=== PATIENT | male | born 1955 | race Caucasian/White ===

== ENCOUNTER 2017-04-06 13:01 | Inpatient (IN) | payer OTHER ==
[2017-04-06 14:01] VITALS: BMI 17.7
--- NOTE | 2017-04-06 14:54 | HP ---
CIWA Score - CIWA Score Nausea/Vomitin-No Nausea/No Vomiting Muscle Tremors: 4-Moderate,w/Arms Extend Anxiety: 3 Agitation: 4-Moderately Restless Paroxysmal Sweats: 3 Orientation: 0-Oriented Tacttile Disturbances: 0-None Auditory Disturbances: 0-None Visual Disturbances: 0-None Headache: 0-None Present CIWA-Ar Total Score: 14 Admission ROS BHS - HPI Chief Complaint: I am here for detox. Allergies/Adverse Reactions: Allergies Allergy/AdvReac Type Severity Reaction Status Date / Time No Known Allergies Allergy Verified 04/06/17 13:58 History of Present Illness: pt is a 61yr old male with a history of alcohol dependence seeking detox for treatment. Exam Limitations: No Limitations - Ebola screening Have you traveled outside of the country in the last 21 days: No Have you had contact with anyone from an Ebola affected area: No Have you been sick,other than usual withdrawal symptoms: No Do you have a fever: No - Review of Systems Constitutional: Chills, Loss of Appetite, Night Sweats, Unintentional Wgt. Loss EENT: reports: Tearing, Nose Congestion Respiratory: reports: Cough Cardiac: reports: No Symptoms Reported GI: reports: Poor Appetite, Poor Fluid Intake : reports: No Symptoms Reported Musculoskeletal: reports: No Symptoms Reported, Back Pain Integumentary: reports: Flushing, Sweating Neuro: reports: Headache, Seizure (alcohol related seizure many years ago.), Tingling, Tremors Endocrine: reports: Excessive Sweating, Flushing, Intolerance to Cold, Intolerance to Heat Hematology: reports: Anemia Psychiatric: reports: Judgement Intact, Mood/Affect Appropiate, Orientated x3, Agitated, Anxious Other Systems: Reviewed and Negative Patient History - Patient Medical History Hx Anemia: Yes Hx Asthma: Yes Hx Chronic Obstructive Pulmonary Disease (COPD): Yes Hx Cancer: No Hx Cardiac Disorders: No Hx Congestive Heart Failure: No Hx Hypertension: No Hx Hypercholesterolemia: No Hx Pacemaker: No HX Cerebrovascular Accident: No Hx Seizures: Yes (alcohol related -last episode was in 2004) Hx Dementia: No Hx Diabetes: No Hx Gastrointestinal Disorders: Yes (acid reflux) Hx Liver Disease: No Hx Genitourinary Disorders: No Hx Sexually Transmitted Disorders: No Hx Renal Disease (ESRD): No Hx Thyroid Disease: No Hx Human Immunodeficiency Virus (HIV): No (negative) Hx Hepatitis C: No (nicotine ) Hx Depression: No Hx Suicide Attempt: No (denies) Hx Bipolar Disorder: No Hx Schizophrenia: No - Patient Surgical History Past Surgical History: Yes Hx Neurologic Surgery: No Hx Cataract Extraction: No Hx Cardiac Surgery: No Hx Lung Surgery: Yes (open thoracotomy in 2004) Hx Abdominal Surgery: Yes (right inguinal hernia repair at age of 7 years) Hx Appendectomy: Yes (at age of 9 years,) Hx Cholecystectomy: No Hx Genitourinary Surgery: No Hx Section: No Hx Orthopedic Surgery: No Anesthesia Reaction: No - PPD History Previous Implant?: Yes Documented Results: Positive w/o proof - Reproductive History Patient is a Female of Child Bearing Age (11 -55 yrs old): No - Smoking Cessation Smoking history: Current every day smoker Have you smoked in the past 12 months: Yes Aproximately how many cigarettes per day: 20 Hx Chewing Tobacco Use: No Initiated information on smoking cessation: Yes 'Breaking Loose' booklet given: 04/06/17 - Substance & Tx. History Hx Alcohol Use: Yes Hx Substance Use: Yes Substance Use Type: Alcohol, Marijuana Hx Substance Use Treatment: Yes (last detox at [facility] 12/2012) - Substances Abused Alcohol-beer Route: Oral Frequency: Daily Amount used: 2-3 6 pks. beer Age of first use: 11 Date of Last Use: 04/05/17 Marijuana Route: Smoking Frequency: 3-6 times per week Amount used: $5 Age of first use: 15 Date of Last Use: 04/05/17 Family Disease History - Family Disease History Family History: Denies Admission Physical Exam S - Vital Signs Vital Signs: Vital Signs - 24 hr 04/06/17 13:56 Temperature 96 F L Pulse Rate 113 H Respiratory 19 Rate Blood Pressure 152/112 - Physical General Appearance: Yes: Appropriately Dressed, Moderate Distress, Thin, Tremorous, Irritable, Sweating, Anxious HEENTM: Yes: Normal Voice, Nasal Congestion, Rhinorrhea Respiratory: Yes: Lungs Clear, Normal Breath Sounds, No Respiratory Distress Neck: Yes: No masses,lesions,Nodules Breast: Yes: Within Normal Limits Cardiology: Yes: Regular Rhythm, Regular Rate, S1, S2 Abdominal: Yes: Normal Bowel Sounds, Non Tender, Soft Genitourinary: Yes: Within Normal Limits Back: Yes: Normal Inspection Musculoskeletal: Yes: Back pain Extremities: Yes: Normal Capillary Refill, Normal Inspection, Non-Tender, Tremors Neurological: Yes: Fully Oriented, Alert, Normal Response Integumentary: Yes: Normal Color, Diaphoresis Lymphatic: Yes: Within Normal Limits - Diagnostic (1) COPD - Chronic obstructive lung disease Current Visit: Yes Status: Chronic (2) Alcohol dependence with uncomplicated withdrawal Current Visit: Yes Status: Chronic (3) herniated dics of thoracic spine Current Visit: No Status: Chronic (4) Nicotine dependence Current Visit: Yes Status: Chronic Qualifiers: Nicotine product type: cigarettes Substance use status: uncomplicated Qualified Code(s): F17.210 - Nicotine dependence, cigarettes, uncomplicated (5) GERD (gastroesophageal reflux disease) Current Visit: Yes Status: Chronic Qualifiers: Esophagitis presence: without esophagitis Qualified Code(s): K21.9 - Gastro-esophageal reflux disease without esophagitis Cleared for Admission BHS - Detox or Rehab [facility] Level of Care: Medically Managed Detox Regimen/Protocol: Librium S Breath Alcohol Content Breath Alcohol Content: 0 Urine Drug Screen - Results Urine Drug Screen Results: THC-Marijuana, MET-Methamphetamine, BZO- Benzodiazepines
[2017-04-06] MEDS ORDERED: diphenhydrAMINE HCL 50 MG CAPSULE PO PRN (14:58)
[2017-04-06] MEDS ORDERED: IBUPROFEN 400 MG TABLET (FP) PO PRN (14:58)
[2017-04-06] MEDS ORDERED: P-EPHED 60MG/TRIPROLIDI 2.5MG TABLET PO PRN (14:58)
[2017-04-06] MEDS ORDERED: MAGNESIUM HYDROX 2400MG/30ML ORAL SUSPENSION 30 ML CUP PO PRN (14:58)
[2017-04-06] MEDS ORDERED: NICOTINE POLACRILEX 4 MG GUM BC PRN (14:58)
[2017-04-06] MEDS ORDERED: chlordiazePOXIDE HCL 25 MG CAPSULE PO PRN (14:58)
[2017-04-06] MEDS ORDERED: MAGNESIUM CITRATE 300 ML BOTTLE PO PRN (14:58)
[2017-04-06] MEDS ORDERED: ACETAMINOPHEN 325 MG TABLET (FP) PO PRN (14:58)
[2017-04-06] MEDS ORDERED: chlordiazePOXIDE HCL 25 MG CAPSULE PO ONE (14:58)
[2017-04-06] MEDS ORDERED: MENTHOL/PHENOL 1 EACH UD MM PRN (14:58)
[2017-04-06] MEDS ORDERED: LOPERAMIDE HCL 2 MG CAPSULE PO PRN (14:58)
[2017-04-06] MEDS ORDERED: guaiFENesin/D-METHORPHAN HB 10 ML UNIT-DOSE CUPS PO PRN (14:58)
[2017-04-06] MEDS: chlordiazePOXIDE HCL 25 MG CAPSULE PO SCH ×2 (17:52→23:10)
[2017-04-06] MEDS: ALBUTEROL SO4 6.7 GM HFA INHALER IH PRN (18:23)
[2017-04-06] MEDS: ALBUTEROL SO4 2.5/IPRATROPIUM 0.5 INH SOL 3 ML VIAL.NEB. NEB PRN (18:24)
--- NOTE | 2017-04-06 21:35 | EKG ---
Test Reason : Blood Pressure : / mmHG Vent. Rate : 106 BPM Atrial Rate : 106 BPM P-R Int : 112 ms QRS Dur : 090 ms QT Int : 338 ms P-R-T Axes : 078 063 078 degrees QTc Int : 448 ms SINUS TACHYCARDIA RIGHT ATRIAL ENLARGEMENT MINIMAL VOLTAGE CRITERIA FOR LVH, MAY BE NORMAL VARIANT HIHG LATERAL WALL DC NEEDS TO BE RULED OUT ABNORMAL ECG NO PREVIOUS ECGS AVAILABLE REPEAT EKG IF CLINICALLY INDICATED Confirmed by LEWIS STOVER MD ([id number]) on 04/06/2017 9:34:54 PM Referred By: Confirmed By:LEWIS STOVER MD
[2017-04-06 22:15] LABS: URINE APPEARANCE SLCLOUDY; URINE BILIRUBIN NEGATIVE (NEGATIVE); URINE BLOOD NEGATIVE (NEGATIVE); URINE COLOR YELLOW; URINE GLUCOSE (UA) NEGATIVE (NEGATIVE); URINE KETONE 2+ (NEGATIVE); URINE LEUK ESTERASE NEGATIVE (NEGATIVE); URINE NITRITE NEGATIVE (NEGATIVE); URINE UROBILINOGEN NEGATIVE mg/dL (0.2-1.0)
[2017-04-06 22:24] LABS: URINE PROTEIN 2+ (NEGATIVE)
[2017-04-06] MEDS: BUDESONIDE/FORMETEROL FUMARATE 160/4.5 mcg INHALER IH SCH (22:30)
[2017-04-06 22:33] LABS: URINE MUCUS RARE; URINE RBC <1 /hpf (0-3); URINE WBC 1 /hpf (3-5)
[2017-04-06] MEDS: THIAMINE HCL 100 MG TABLET (FP) PO SCH (23:10)
[2017-04-07] MEDS: chlordiazePOXIDE HCL 25 MG CAPSULE PO SCH ×4 (05:39→22:49)
[2017-04-07] MEDS: ALBUTEROL SO4 2.5/IPRATROPIUM 0.5 INH SOL 3 ML VIAL.NEB. NEB PRN (09:08)
[2017-04-07 10:01] LABS: MCH 30.7 pg (25.7-33.7); MCHC 32.2 g/dl (32.0-35.9); MEAN CELL VOLUME 95.4 fl (80-96); MEAN PLT VOLUME 9.2 fl (7.5-11.1); PLATELET COUNT 237 K/MM3 (134-434); RDW 18.6 % (11.9-15.9)
[2017-04-07 10:32] LABS: ALBUMIN 4.2 g/dl (3.4-5.0); ANION GAP 12 (8-16); CALCIUM 9.9 mg/dL (8.5-10.1); CO2 27 mmol/L (21-32); GLUCOSE,RANDOM 101 mg/dL (74-106)
[2017-04-07 10:37] LABS: ALK PHOS 86 U/L (45-117); BILIRUBIN,TOTAL 0.6 mg/dL (0.2-1.0); CREATININE 0.6 mg/dL (0.7-1.3); SGOT/AST 79 U/L (15-37); SGPT/ALT 62 U/L (12-78); TOT PROT 7.9 g/dl (6.4-8.2)
[2017-04-07] MEDS: predniSONE 20 MG TABLET (UD) PO SCH (10:56)
[2017-04-07] MEDS: PRENATAL VITAMINS W/ FOLIC ACID TABLET (FP) PO SCH (10:56)
[2017-04-07] MEDS: NICOTINE 21 MG/24 HOURS TOPICAL PATCH TD SCH (10:56)
[2017-04-07] MEDS: BUDESONIDE/FORMETEROL FUMARATE 160/4.5 mcg INHALER IH SCH ×2 (10:57→22:49)
--- NOTE | 2017-04-07 12:25 | PN ---
[facility] CIWA - CIWA Score Nausea/Vomitin-No Nausea/No Vomiting Muscle Tremors: 4-Moderate,w/Arms Extend Anxiety: 4-Mod. Anxious/Guarded Agitation: 4-Moderately Restless Paroxysmal Sweats: 1-Minimal Palms Moist Orientation: 0-Oriented Tacttile Disturbances: 3-Moderate Itch/Numb/Burn Auditory Disturbances: 0-None Visual Disturbances: 0-None Headache: 0-None Present CIWA-Ar Total Score: 16 BHS Progress Note (SOAP) Subjective: ANXIETY,TREMULOUS,IRRITABILITY, FATIGUE. Objective: 04/07/17 12:23 Vital Signs 04/07/17 04/07/17 06:58 10:16 Temperature 97.4 F L 96.6 F L Pulse Rate 119 H 125 H Respiratory 20 18 Rate Blood Pressure 148/91 141/96 Assessment: 04/07/17 12:24 WITHDRAWAL SX Plan: CONTINUE DETOX ADDITIONAL LIBRIUM 50 MG PO AT 2:00 PM TODAY
[2017-04-07] MEDS ORDERED: BACITRACIN 15 GM TUBE TOPICAL OINTMENT TP SCH (12:30)
--- NOTE | 2017-04-07 12:36 | CONSULT ---
[facility] Psychiatric Consult - Data Date of interview: 04/07/17 Admission source: [facility] Identifying data: Readmission to [facility] for this 61 y/o male seeking detox treatment on for alcohol and marihuana dependence.Patient is single without children,domiciled,unemployed and supported on [facility] benefits. Substance Abuse History: Confirmed by patient. Smoking Cessation. Smoking history: Current every day smoker. Have you smoked in the past 12 months: Yes. Aproximately how many cigarettes per day: 20. Hx Chewing Tobacco Use: No. Initiated information on smoking cessation: Yes. 'Breaking Loose' booklet given : 04/06/17. - Substance & Tx. History. Hx Alcohol Use: Yes. Hx Substance Use : Yes. Substance Use Type: Alcohol, Marijuana. Hx Substance Use Treatment: Yes (last detox at [facility] 12/2012). - Substances Abused. Alcohol-beer. Route: Oral. Frequency: Daily. Amount used: 2-3 6 pks. beer. Age of first use : 11. Date of Last Use: 04/05/17. Marijuana. Route: Smoking. Frequency: 3 -6 times per week. Amount used: $5. Age of first use: 15. Date of Last Use: 04/05/17 Medical History: Remarkable for bronchial asthma,COPD,aspergillus,withdrawal- related seizures in the past,lower back pain,herniated disk (thoracic spine), GERD,onychomycosis,and right inguinal herniorraphy.Noted additional history of appendectomy,thoracotomy (2003) and orthosurgery for multiple fractures (wrists, ribs,right leg). Psychiatric History: Patient denies. Physical/Sexual Abuse/Trauma History: No history of sexual abuse. Additional Comment: Urine Drug Screen Results: THC-Marijuana, MET- Methamphetamine, BZO-Benzodiazepines.Noted. Mental Status Exam - Mental Status Exam Alert and Oriented to: Time, Place, Person Cognitive Function: Good Patient Appearance: Well Groomed Mood: Withdrawn Affect: Appropriate, Normal Range Patient Behavior: Fatigued, Appropriate, Cooperative Speech Pattern: Clear Voice Loudness: Normal Thought Process: Intact, Goal Oriented Thought Disorder: Not Present Hallucinations: Denies Suicidal Ideation: Denies Homicidal Ideation: Denies Insight/Judgement: Poor Sleep: Poorly, Difficulty falling asleep Appetite: Poor, Weight loss Muscle strength/Tone: Normal Gait/Station: Normal Psychiatric Findings - Problem List ([place] 1, 2,3) (1) Alcohol dependence with uncomplicated withdrawal Current Visit: Yes Status: Acute (2) Nicotine dependence Current Visit: Yes Status: Acute Qualifiers: Nicotine product type: cigarettes Substance use status: uncomplicated Qualified Code(s): F17.210 - Nicotine dependence, cigarettes, uncomplicated (3) Marihuana dependence Current Visit: Yes Status: Acute (4) COPD - Chronic obstructive lung disease Current Visit: Yes Status: Chronic (5) GERD (gastroesophageal reflux disease) Current Visit: Yes Status: Chronic Qualifiers: Esophagitis presence: without esophagitis Qualified Code(s): K21.9 - Gastro-esophageal reflux disease without esophagitis (6) Onychomycosis Current Visit: Yes Status: Active (7) multiple fx both wrists,right femur,leg,post trauma Current Visit: No Status: Resolved (8) s/p appendectomy Current Visit: Yes Status: Resolved (9) Insomnia Current Visit: Yes Status: Acute - Initial Treatment Plan Initial Treatment Plan: Psychoeducation.Detoxification.Ambien 5 mg po hs.Patient made aware of risk for parasomnias.patient agrees with careplan.Observation.
[2017-04-07] MEDS: BACITRACIN 0.9 GM PACKET TP SCH ×2 (13:38→22:52)
[2017-04-07] MEDS ORDERED: chlordiazePOXIDE HCL 25 MG CAPSULE PO ONE (14:00)
[2017-04-07] MEDS: MAG HYDROX/AL HYDROX/SIMETH 30 ML UNIT-DOSE CUP PO PRN (17:51)
[2017-04-07] MEDS: THIAMINE HCL 100 MG TABLET (FP) PO SCH (22:49)
[2017-04-08] MEDS: chlordiazePOXIDE HCL 25 MG CAPSULE PO SCH ×2 (06:08→10:27)
[2017-04-08] MEDS: predniSONE 20 MG TABLET (UD) PO SCH (10:27)
[2017-04-08] MEDS: BACITRACIN 0.9 GM PACKET TP SCH ×2 (10:27→22:36)
[2017-04-08] MEDS: PRENATAL VITAMINS W/ FOLIC ACID TABLET (FP) PO SCH (10:27)
[2017-04-08] MEDS: NICOTINE 21 MG/24 HOURS TOPICAL PATCH TD SCH (10:28)
[2017-04-08] MEDS: BUDESONIDE/FORMETEROL FUMARATE 160/4.5 mcg INHALER IH SCH ×2 (10:28→22:35)
--- NOTE | 2017-04-08 11:29 | PN ---
[facility] CIWA - CIWA Score Nausea/Vomitin-No Nausea/No Vomiting Muscle Tremors: 4-Moderate,w/Arms Extend Anxiety: 4-Mod. Anxious/Guarded Agitation: 4-Moderately Restless Paroxysmal Sweats: 1-Minimal Palms Moist Orientation: 0-Oriented Tacttile Disturbances: 3-Moderate Itch/Numb/Burn Auditory Disturbances: 0-None Visual Disturbances: 0-None Headache: 0-None Present CIWA-Ar Total Score: 16 BHS Progress Note (SOAP) Subjective: ANXIETY,SWEATS,TREMORS,IRRITABILITY Objective: 04/08/17 11:27 WITHDRAWAL SX Assessment: 04/08/17 11:28 WITHDRAWAL SX Plan: CONTINUE DETOX
[2017-04-08] MEDS ORDERED: chlordiazePOXIDE HCL 25 MG CAPSULE PO ONE (14:00)
[2017-04-08] MEDS: chlordiazePOXIDE 5 MG CAPSULE PO SCH ×2 (17:05→22:36)
[2017-04-08] MEDS: ALBUTEROL SO4 6.7 GM HFA INHALER IH PRN (17:07)
[2017-04-08] MEDS: hydrOXYzine PAMOATE 50 MG CAPSULE (FP) PO PRN (17:40)
[2017-04-08] MEDS: ALBUTEROL SO4 2.5/IPRATROPIUM 0.5 INH SOL 3 ML VIAL.NEB. NEB PRN (17:41)
[2017-04-08] MEDS: ZOLPIDEM TARTRATE 5 MG TABLET PO PRN (22:36)
[2017-04-08] MEDS: THIAMINE HCL 100 MG TABLET (FP) PO SCH (22:36)
[2017-04-09] MEDS: hydrOXYzine PAMOATE 50 MG CAPSULE (FP) PO PRN ×4 (03:35→22:41)
[2017-04-09] MEDS: chlordiazePOXIDE 5 MG CAPSULE PO SCH ×2 (05:18→10:17)
[2017-04-09] MEDS: ALBUTEROL SO4 6.7 GM HFA INHALER IH PRN (05:20)
[2017-04-09] MEDS: predniSONE 20 MG TABLET (UD) PO SCH (10:17)
[2017-04-09] MEDS: PRENATAL VITAMINS W/ FOLIC ACID TABLET (FP) PO SCH (10:17)
[2017-04-09] MEDS: NICOTINE 21 MG/24 HOURS TOPICAL PATCH TD SCH (10:17)
[2017-04-09] MEDS: BUDESONIDE/FORMETEROL FUMARATE 160/4.5 mcg INHALER IH SCH ×2 (10:17→22:40)
[2017-04-09] MEDS: BACITRACIN 0.9 GM PACKET TP SCH ×2 (10:17→22:39)
--- NOTE | 2017-04-09 11:49 | PN ---
BHS Progress Note (SOAP) Subjective: ANXIETY,TREMORS,SWEATS, INTERMITTENT SLEEP. Objective: 04/09/17 11:48 Vital Signs Temperature 98.1 F 04/09/17 10:02 Pulse Rate 102 H 04/09/17 10:02 Respiratory Rate 20 04/09/17 10:02 Blood Pressure 123/79 04/09/17 10:02 O2 Sat by Pulse Oximetry (%) Laboratory Last Values WBC 9.0 K/mm3 (4.0-10.0) 04/07/17 06:00 RBC 4.50 M/mm3 (4.00-5.60) 04/07/17 06:00 Hgb 13.8 GM/dL (11.7-16.9) D 04/07/17 06:00 Hct 42.9 % (35.4-49) 04/07/17 06:00 MCV 95.4 fl (80-96) 04/07/17 06:00 MCH 30.7 pg (25.7-33.7) 04/07/17 06:00 MCHC 32.2 g/dl (32.0-35.9) 04/07/17 06:00 RDW 18.6 % (11.9-15.9) H D 04/07/17 06:00 Plt Count 237 K/MM3 (134-434) 04/07/17 06:00 MPV 9.2 fl (7.5-11.1) 04/07/17 06:00 Sodium 136 mmol/L (136-145) 04/07/17 06:00 Potassium 4.8 mmol/L (3.5-5.1) 04/07/17 06:00 Chloride 97 mmol/L (98-107) L 04/07/17 06:00 Carbon Dioxide 27 mmol/L (21-32) 04/07/17 06:00 Anion Gap 12 (8-16) 04/07/17 06:00 BUN 11 mg/dL (7-18) D 04/07/17 06:00 Creatinine 0.6 mg/dL (0.7-1.3) L 04/07/17 06:00 Creat Clearance w eGFR > 60 (>60) 04/07/17 06:00 Random Glucose 101 mg/dL (74-106) 04/07/17 06:00 Calcium 9.9 mg/dL (8.5-10.1) 04/07/17 06:00 Total Bilirubin 0.6 mg/dL (0.2-1.0) 04/07/17 06:00 AST 79 U/L (15-37) H D 04/07/17 06:00 ALT 62 U/L (12-78) 04/07/17 06:00 Alkaline Phosphatase 86 U/L (45-117) 04/07/17 06:00 Total Protein 7.9 g/dl (6.4-8.2) 04/07/17 06:00 Albumin 4.2 g/dl (3.4-5.0) D 04/07/17 06:00 Urine Color Yellow 04/06/17 21:30 Urine Appearance Slcloudy 04/06/17 21:30 Urine pH 8.0 (5.0-8.0) 04/06/17 21:30 Ur Specific [place] 1.020 (1.005-1.025) 04/06/17 21:30 Urine Protein 2+ (NEGATIVE) H 04/06/17 21:30 Urine Glucose (UA) Negative (NEGATIVE) 04/06/17 21:30 Urine Ketones 2+ (NEGATIVE) H 04/06/17 21:30 Urine Blood Negative (NEGATIVE) 04/06/17 21:30 Urine Nitrite Negative (NEGATIVE) 04/06/17 21:30 Urine Bilirubin Negative (NEGATIVE) 04/06/17 21:30 Urine Urobilinogen Negative mg/dL (0.2-1.0) 04/06/17 21:30 Ur Leukocyte Esterase Negative (NEGATIVE) 04/06/17 21:30 Urine RBC <1 /hpf (0-3) 04/06/17 21:30 Urine WBC 1 /hpf (3-5) 04/06/17 21:30 Urine Mucus Rare 04/06/17 21:30 RPR Titer Nonreactive (NONREACTIVE) 04/07/17 06:00 Assessment: 04/09/17 11:48 WITHDRAWAL SX Plan: CONTINUE DETOX INCREASE PO FLUIDS.
[2017-04-09] MEDS: chlordiazePOXIDE HCL 10 MG CAPSULE PO SCH ×2 (17:18→22:39)
[2017-04-09] MEDS: ZOLPIDEM TARTRATE 5 MG TABLET PO PRN (22:39)
[2017-04-09] MEDS: THIAMINE HCL 100 MG TABLET (FP) PO SCH (22:39)
[2017-04-09] MEDS: MAG HYDROX/AL HYDROX/SIMETH 30 ML UNIT-DOSE CUP PO PRN (22:42)
[2017-04-10] MEDS: chlordiazePOXIDE HCL 10 MG CAPSULE PO SCH (05:42)
[2017-04-10 06:42] VITALS: TEMP 97.9
[2017-04-10 08:00] VITALS: BP 130/80; PULSE 100
--- NOTE | 2017-04-10 21:39 | DS ---
[facility] Detox Discharge Summary Admission Date: 04/06/17 Discharge Date: 04/10/17 - History Present History: Alcohol Dependence, Cannabis Dependence Additional Comments: PATIENT GOING HOME. PATIENT ADVISED TO CONSIDER LOCAL 12-STEP / AA OUTPATIENT SUPPORT GROUPS FOR FOLLOW-UP AFTERCARE. PATIENT WAS DISCHARGED FROM UNIT IN STABLE MEDICAL CONDITION. Pertinent Past History: Asthma, C.O.P.D., History of Seizures, Herniated Discs of Thoracic Spine, Insomnia. - Physical Exam Results Vital Signs: Vital Signs Temperature 97.9 F 04/10/17 06:42 Pulse Rate 100 H 04/10/17 07:59 Respiratory Rate 16 04/10/17 06:42 Blood Pressure 130/80 04/10/17 07:59 O2 Sat by Pulse Oximetry (%) Pertinent Admission Physical Exam Findings: WITHDRAWAL SYMPTOMS. Laboratory Tests 04/06/17 04/07/17 04/07/17 21:30 06:00 06:00 WBC 9.0 RBC 4.50 Hgb 13.8 D Hct 42.9 MCV 95.4 MCH 30.7 MCHC 32.2 RDW 18.6 H D Plt Count 237 MPV 9.2 Sodium 136 Potassium 4.8 Chloride 97 L Carbon Dioxide 27 Anion Gap 12 BUN 11 D Creatinine 0.6 L Creat Clearance w eGFR > 60 Random Glucose 101 Calcium 9.9 Total Bilirubin 0.6 AST 79 H D ALT 62 Alkaline Phosphatase 86 Total Protein 7.9 Albumin 4.2 D Urine Color Yellow Urine Appearance Slcloudy Urine pH 8.0 Ur Specific [place] 1.020 Urine Protein 2+ H Urine Glucose (UA) Negative Urine Ketones 2+ H Urine Blood Negative Urine Nitrite Negative Urine Bilirubin Negative Urine Urobilinogen Negative Ur Leukocyte Esterase Negative Urine RBC <1 Urine WBC 1 Urine Mucus Rare RPR Titer 04/07/17 06:00 WBC RBC Hgb Hct MCV MCH MCHC RDW Plt Count MPV Sodium Potassium Chloride Carbon Dioxide Anion Gap BUN Creatinine Creat Clearance w eGFR Random Glucose Calcium Total Bilirubin AST ALT Alkaline Phosphatase Total Protein Albumin Urine Color Urine Appearance Urine pH Ur Specific [place] Urine Protein Urine Glucose (UA) Urine Ketones Urine Blood Urine Nitrite Urine Bilirubin Urine Urobilinogen Ur Leukocyte Esterase Urine RBC Urine WBC Urine Mucus RPR Titer Nonreactive LABS NOTED. - Treatment Hospital Course: Detox Protocol Followed, Detoxed Safely, Responded well, Discharged Condition Good Patient has Accepted a Rehab Referral to: PT GOING HOME; ADVISED TO CONSIDER LOCAL 12-STEP/AA PROGRAMS FOR AFTERCARE. - Medication Discharge Medications: Ambulatory Orders Albuterol Sulfate Inhaler - [Ventolin Hfa Inhaler -] 2 inh PO Q4H PRN 04/06/17 Budesonide/Formeterol Fumarate [SYMBICORT 160/4.5mcg -] 1 inh PO BID 04/06/17 Omalizumab [Xolair -] 0 mg SQ MONTHLY 04/06/17 - Diagnosis (1) Anxiety Status: Active (2) Onychomycosis Status: Active (3) Seizure Status: Active (4) Alcohol dependence with uncomplicated withdrawal Status: Acute (5) Insomnia Status: Acute Qualifiers: Insomnia type: unspecified Qualified Code(s): G47.00 - Insomnia, unspecified (6) Marihuana dependence Status: Acute (7) Nicotine dependence Status: Chronic Qualifiers: Nicotine product type: cigarettes Substance use status: uncomplicated Qualified Code(s): F17.210 - Nicotine dependence, cigarettes, uncomplicated (8) COPD - Chronic obstructive lung disease Status: Chronic (9) GERD (gastroesophageal reflux disease) Status: Chronic Qualifiers: Esophagitis presence: without esophagitis Qualified Code(s): K21.9 - Gastro-esophageal reflux disease without esophagitis (10) herniated dics of thoracic spine Status: Chronic - AMA Did Patient Leave Against Medical Advice: No
== END 2017-04-10 09:20 | disposition home or self-care (01) | DRG 776 ==
LOC: YASAS 13:01 → Y3N 16:14
PROVIDERS: ADMIT Internal Medicine Addiction Medicine; ATTEND Internal Medicine Addiction Medicine
PROC: HZ2ZZZZ Detoxification Services for Substance Abuse Treatment (ICD-10-PCS; principal; 2017-04-06)
DX: F12.20 Cannabis dependence, uncomplicated (principal); F17.210 Nicotine dependence, cigarettes, uncomplicated; F41.9 Anxiety disorder, unspecified; G47.00 Insomnia, unspecified; J44.9 Chronic obstructive pulmonary disease, unspecified; K21.9 Gastro-esophageal reflux disease without esophagitis; B35.1 Tinea unguium; M51.24 Other intervertebral disc displacement, thoracic region; Z86.2 Personal history of diseases of the blood and blood-forming organs and certain disorders involving the immune mechanism; Z86.69 Personal history of other diseases of the nervous system and sense organs
CPT/HCPCS: 36415; 71020-TC; 80053; 81003; 81015; 85027; 86593; 93005; 93010; 94640